=== PATIENT | female | born 1985 | race Caucasian/White ===

== ENCOUNTER 2020-07-13 11:22 | Outpatient (NON) | payer SELFPAY ==
[2020-07-13 22:34] LABS: SARS-CoV-2 RNA PCR Positive
== END 2020-07-13 11:23 ==
PROVIDERS: PCP Family Medicine Adolescent Medicine; Visit Provider Family Medicine Adolescent Medicine
DX: U07.1 COVID-19 (principal)
CPT/HCPCS: C9803; U0003; U0005

== ENCOUNTER → 2021-02-11 15:05 | Outpatient (CLI) | payer BC, SELFPAY ==
--- NOTE | ~2021-02-11 | US_ITS ---
US transvaginal DATE: 02/11/2021 15:27 INDICATION: Abdominal distention and cramping, bloating, pain for 4 days. TECHNIQUE: Real-time imaging via transvaginal approach only COMPARISON: 07/13/2015 CT abdomen pelvis FINDINGS: The uterus measures 7.8 cm height, 4.5 cm AP and 5.7 cm transverse dimension. A 3.7 cm uterine fibroid is identified posteriorly. Right ovary measures 3.2 x 2.2 x 2.0 cm, ovarian follicles, the largest 1.6 cm. There is vascular thierno w to the right ovary. The left measures 4.2 x 3.3 x 4.1 cm, with ovarian follicles measuring up to 9 mm. There is a heterog eneous echogenic 2.5 x 2.8 cm left ovarian lesion; this may be a hemorrhagic or complicated cyst. Bernadette rt-term ultrasound follow-up imaging is recommended. There is vascular flow to the left ovary. Mild free fluid is noted in the cul-de-sac. IMPRESSION: 2.5 x 2.8 cm heterogeneous echogenic left ovarian lesion, possibly a complicated or hemor rhagic cyst; short-term ultrasound follow-up is recommended Mild free fluid collection in the cul-de-sac 3.7 cm uterine fibroid Reviewed, dictated and finalized at [facility]. Reviewed, dictated and finalized at [facility]. IMPRESSION: 2.5 x 2.8 cm heterogeneous echogenic left ovarian lesion, possibly a complicated or hemorrhagic cyst; short-term ultrasound follow-up is recommend ed Mild free fluid collection in the cul-de-sac 3.7 cm uterine fibroid
== END ==
PROVIDERS: Visit Provider Obstetrics & Gynecology
DX: R19.00 Intra-abdominal and pelvic swelling, mass and lump, unspecified site (principal); D25.9 Leiomyoma of uterus, unspecified
CPT/HCPCS: 76830